=== PATIENT | female | born 1965 | race African-American/Black ===

== ENCOUNTER 2018-05-24 11:19 | Outpatient (CLI) | payer OTHER | END 2018-05-24 11:20 | disposition home or self-care (01) | LOC: BICMAMMO 11:19 | PROVIDERS: ATTEND Student in an Organized Health Care Education/Training Program | DX: Z12.31 Encounter for screening mammogram for malignant neoplasm of breast (principal); Z80.3 Family history of malignant neoplasm of breast | CPT/HCPCS: 77063; 77067 ==

== ENCOUNTER 2018-06-28 11:49 | Day surgery (SDC) | payer OTHER ==
[2018-06-27 15:28] VITALS: BMI 32.9
--- NOTE | 2018-06-27 22:31 | HP ---
HISTORY OF PRESENT ILLNESS: This is a 53-year-old female, referred to me for a colonoscopy for colon cancer screening. The patient has no specific disease. Her bowel movement are regular. No hematochezia or melena. There is no family history of colon cancer. ALLERGIES: CODEINE. MEDICAL ILLNESS: 1. Hypertension, not on medication. 2. Allergic rhinitis. 3. 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 4. Chronic acid reflux. PHYSICAL EXAMINATION: VITAL SIGNS: Weight is 194 pounds, pulse is 74, blood pressure 160/90. HEENT: Conjunctivae clear. CARDIOVASCULAR SYSTEM: First and second heart sounds were heard. LUNGS: Clear to auscultation. ABDOMEN: Soft. No organomegaly. No tenderness. No masses. EXTREMITIES: Reveal no edema. ADMITTING DIAGNOSIS: A 53-year-old female undergoing colonoscopy for colon cancer screening. Job ID: [id number]
[2018-06-28] MEDS ORDERED: Lidocaine 1% PF 5 ML VIAL ONE (13:49)
[2018-06-28] MEDS ORDERED: PROPOFOL 200 MG/20 ML VIAL ONE (13:49)
--- NOTE | 2018-06-28 16:01 | OP ---
DATE OF PROCEDURE: 06/28/2018 OPERATIVE PROCEDURE: Colonoscopy with polypectomy. PREOPERATIVE DIAGNOSIS: Colon cancer screening. POSTOPERATIVE DIAGNOSES: 1. Large sessile polyp sigmoid colon. 2. Scattered diverticula all the way to the cecum from the sigmoid colon, however, this was mild. DESCRIPTION OF PROCEDURE: The patient was placed on her left lateral position and was given sedation by Anesthesia Department. A rectal exam was done before the scope was advanced into the rectum. No lesions felt on rectal exam. A [employer] video colonoscope was introduced into the rectum and advanced all the way into the cecum. The prep is good. The mucosa appears normal throughout the colon with also left colon. The appendiceal orifice, ileocecal wall, cecum, no pathology seen. The patient had scattered diverticular disease from the sigmoid colon all the way to the cecum, it was very mild. The patient had a very broad-based sessile polyp in the sigmoid colon area. A polyp removed with snare cautery with good hemostasis. Retroflexion of scope in the rectum showed no early pathology. DISCHARGE PLANS: A 53-year-old female, came for a colonoscopy for colon cancer screening. She underwent colonoscopy polypectomy, removal of a large broad-based sessile polyp from sigmoid colon. DISCHARGE RECOMMENDATIONS: 1. The patient was advised to call me if she develops abdominal pain, hematochezia. 2. In the absence of any of those symptoms, come back to me in 2 weeks. . Job ID: [id number] [id number]
== END 2018-06-28 15:42 | disposition home or self-care (01) ==
LOC: SDC 11:49
PROVIDERS: ATTEND Internal Medicine Gastroenterology
PROC: 0DBN8ZX Excision of Sigmoid Colon, Via Natural or Artificial Opening Endoscopic, Diagnostic (ICD-10-PCS; principal; 2018-06-28)
DX: Z12.11 Encounter for screening for malignant neoplasm of colon (principal); D12.5 Benign neoplasm of sigmoid colon; K57.30 Diverticulosis of large intestine without perforation or abscess without bleeding; I10 Essential (primary) hypertension; J30.9 Allergic rhinitis, unspecified; K21.9 Gastro-esophageal reflux disease without esophagitis; Z88.5 Allergy status to narcotic agent
CPT/HCPCS: 88305; J2001; J2704